=== PATIENT | female | born 1960 | race Caucasian/White ===

== ENCOUNTER 2021-05-28 13:04 | Inpatient (IN) | payer OTHER ==
[~2021-05-28] VITALS: Ht 170.1 cm; Wt 83.9 kg
[2021-05-28] MEDS ORDERED: JARDIANCE25 MG PO (16:17)
[2021-05-28] MEDS ORDERED: PERCOCET 10-321 EACH PO (16:18)
[2021-05-28] MEDS ORDERED: SYMB160 INH (16:19)
[2021-05-28] MEDS ORDERED: TRAZODONE50 MG PO (16:20)
[2021-05-28] MEDS ORDERED: EFFEXOR-XR150 MG PO (16:21)
[2021-05-28] MEDS ORDERED: CALAN SR240 MG PO (16:22)
[2021-05-28] MEDS ORDERED: PROAIR HFA8.5 GM INH (16:28)
[2021-05-28] MEDS ORDERED: LIPITOR40 MG PO (16:30)
[2021-05-28] MEDS ORDERED: Clopidogrel75 MG PO (16:34)
[2021-05-28] MEDS ORDERED: NEURONTIN300 MG PO (16:35)
[2021-05-28] MEDS ORDERED: LANTUS SOL100 UNIT/1 SC (16:36)
[2021-05-28 20:13] VITALS: BP 148/90
[2021-05-29 06:29] LABS: BASO # 0.1 10*3/uL (0.0-0.1); BASO % 0.5 % (0.0-1.0); EOS % 0.3 % (1.0-4.0); HEMATOCRIT 47.9 % (37.0-47.0); LYMPH # 2.8 10*3/uL (1.3-4.4); LYMPH % 31.1 % (27.0-41.0); MEAN CELL VOLUME 87.2 fl (81.0-99.0); MEAN CORPUSCULAR HGB 27.3 pg (27.0-31.0); MEAN CORPUSCULAR HGB CONC 31.3 g/dl (33.0-37.0); MEAN PLATELET VOLUME 11.3 fl (9.6-12.3); MONO % 10.5 % (3.0-9.0); NEUT # 5.2 10*3/uL (2.3-7.9); NEUT % 57.4 % (47.0-73.0); PLATELET COUNT AUTOMATED 189 10*3/uL (130-400); RED BLOOD COUNT 5.49 10*6/uL (4.10-5.10); RED CELL DISTRI WIDTH 14.4 % (0-14.5); WHITE BLOOD COUNT 9.1 10*3/uL (4.8-10.8)
[2021-05-29 06:36] LABS: ALBUMIN 3.1 gm/dl (3.1-4.5); ALKALINE PHOSPHATASE 119 U/L (45-117); BUN 16 mg/dl (7-24); CHLORIDE 101 mmol/L (98-107); CHOLESTEROL 144 mg/dL (<200); CREATININE 0.71 mg/dL (0.55-1.02); LDL CHOLESTEROL 51 mg/dL (9-159); POTASSIUM 3.8 mmol/L (3.5-5.1); SGOT/AST 31 IU/L (3-35); SGPT/ALT 40 U/L (12-78); SODIUM 139 mmol/L (136-145); TOTAL PROTEIN 6.9 gm/dL (6.4-8.2); TRIGLYCERIDES 136 mg/dl (<150)
[2021-05-29 06:58] LABS: BILIRUBIN Negative (Negative); BLOOD Negative (Negative); CLARITY Cloudy (Clear); COLOR Yellow (Yellow); GLUCOSE 2+ (Negative); KETONE 3+ (Negative); LEUKO ESTERASE 1+ (Negative); NITRITE Positive (Negative); SPECIFIC GRAVITY 1.015 (1.001-1.030)
[2021-05-29 07:36] LABS: VITAMIN D, 25-HYDROXY 29.5 ng/mL (30-100)
[2021-05-29 07:53] VITALS: BP 117/86
[2021-05-29 08:01] LABS: BACTERIA 4+; WBC 21-30 wbc/hpf (0-5); YEAST 1+
[2021-05-29 20:00] VITALS: BP 150/86
[2021-05-30 07:39] VITALS: BP 142/85
[2021-05-30 19:56] VITALS: BP 139/98
[2021-05-31 08:00] VITALS: BP 146/87
[2021-05-31 20:00] VITALS: BP 143/87
[2021-06-01 07:56] VITALS: BP 148/82
[2021-06-01 20:00] VITALS: BP 139/64
[2021-06-02 07:46] VITALS: BP 157/89
[2021-06-02 19:54] VITALS: BP 124/68
[2021-06-03 08:00] VITALS: BP 150/86
[2021-06-03 20:00] VITALS: BP 135/90
[2021-06-04 08:13] VITALS: BP 138/71
[2021-06-04 20:00] VITALS: BP 127/79
[2021-06-05 08:00] VITALS: BP 133/84
[2021-06-05 19:19] VITALS: BP 135/62
[2021-06-06 08:00] VITALS: BP 122/84
[2021-06-06 20:00] VITALS: BP 120/78
[2021-06-07 08:04] VITALS: BP 123/77
[2021-06-07] MEDS ORDERED: VITAMIN D350 MC2 PO (09:16)
[2021-06-07] MEDS ORDERED: JARDIANCE25 MG PO (09:40)
[2021-06-07] MEDS ORDERED: CALAN SR240 MG PO (09:40)
[2021-06-07] MEDS ORDERED: NEURONTIN300 MG PO (09:40)
[2021-06-07] MEDS ORDERED: LANTUS SOL100 UNIT/1 SC (09:40)
[2021-06-07] MEDS ORDERED: SYMB160 INH (09:40)
[2021-06-07] MEDS ORDERED: Clopidogrel75 MG PO (09:40)
[2021-06-07] MEDS ORDERED: PERCOCET 10-321 EACH PO (09:40)
[2021-06-07] MEDS ORDERED: LIPITOR40 MG PO (09:40)
[2021-06-07] MEDS ORDERED: HYDROXYZINE HCL25 MG PO (09:44)
[2021-06-07] MEDS ORDERED: MIRTAZAPINE15 M2 PO (09:44)
== END 2021-06-07 13:10 | disposition home or self-care (01) | DRG 751 ==
LOC: 3N 13:04
PROVIDERS: Registered Nurse; ADMIT Psychiatry & Neurology Psychiatry; ATTEND Psychiatry & Neurology Psychiatry
DX: F33.2 Major depressive disorder, recurrent severe without psychotic features (principal); F43.23 Adjustment disorder with mixed anxiety and depressed mood; N39.0 Urinary tract infection, site not specified; Z20.822 Contact with and (suspected) exposure to COVID-19; F41.9 Anxiety disorder, unspecified; E55.9 Vitamin D deficiency, unspecified; J45.20 Mild intermittent asthma, uncomplicated; E11.65 Type 2 diabetes mellitus with hyperglycemia; Z79.4 Long term (current) use of insulin; E78.5 Hyperlipidemia, unspecified; I10 Essential (primary) hypertension; Z79.899 Other long term (current) drug therapy